=== PATIENT | male | born 1935 | race Caucasian/White ===

== ENCOUNTER 2020-02-28 18:06 | Inpatient (IN) | payer MEDICARE ==
[2020-02-28 18:51] LABS: Hemoglobin 14.2 g/dL (14.0-18.0); Mean Corpuscular HGB CONC 33.7 g/dL (32.0-36.0); Mean Corpuscular Hemoglobin 32.7 pg (27.0-31.0); Mean Corpuscular Volume 97.1 fL (78.0-98.0); Platelet Count 204 thou/uL (130-400); Red Blood Cell (RBC) Count 4.34 mill/uL (4.70-6.10); White Blood Cell (WBC) Count 39.9 thou/uL (4.8-10.8)
[2020-02-28 18:59] LABS: ALT (SGPT) 25 U/L (8-55); AST (SGOT) 33 U/L (5-34); Albumin 4.3 g/dL (3.4-4.8); Alkaline Phosphatase 77 U/L (40-110); Anion Gap 19 mmol/L (10-20); BUN (Urea Nitrogen) 26 mg/dL (8.4-25.7); Bilirubin, Total 0.6 mg/dL (0.2-1.2); Calc. Creatinine Clearance 0 mL/min (70-130); Calcium 9.9 mg/dL (7.8-10.44); Carbon Dioxide 20 mmol/L (23-31); Chloride 104 mmol/L (98-107); Estimated GFR-MDRD 37; Globulin 2.9 g/dL (2.4-3.5); Glucose 131 mg/dL (83-110); Lipase 37 U/L (8-78); Magnesium 1.9 mg/dL (1.6-2.6); Potassium 6.1 mmol/L (3.5-5.1); Protein, Total 7.2 g/dL (5.8-8.1); Sodium 137 mmol/L (136-145)
[2020-02-28 19:03] LABS: Band 2 % (5-11); Burr Cells SLIGHT = 2-5 cells (100X) (0-1/hpf); Lymphocytes 65 % (21-51); MDiff Complete? YES; Monocytes 2 % (0-10); Neutrophil 7 % (42-75); Ovalocytes SLIGHT = 2-5 cells (100X) (0-1/hpf); Platelet Morphology Comment Appears Adequate; Polychromasia SLIGHT = 2-3 cells (100X) (0-2/hpf); Reactive Lymphocytes 24 % (0-10)
[2020-02-28] MEDS ORDERED: Furosemide 40 MG/4 ML VIAL ONE (19:30)
--- NOTE | 2020-02-28 19:32 | RAD ---
EXAM: CHEST ONE VIEW HISTORY: Weakness. Near syncopal episode. COMPARISON: 07/23/2012 obtained from the [facility] FINDINGS: The cardiac silhouette and pulmonary vasculature is within normal limits. The lungs are clear. Degene rative changes are present in the spine. There is resorption of the distal right clavicle, but this is a stable finding. Vascular calcifications are again seen in the thoracic aorta. IMPRESSION: No acute cardiopulmonary process.
[2020-02-28 20:30] LABS: Bilirubin Negative (Negative); Blood, Urine Negative (Negative); Clarity Clear (Clear); Glucose, Urine (Dipstick) Normal (Negative); Ketone, Urine Negative (Negative); Leukocyte 250 Leu/uL (Negative); Nitrite Negative (Negative); Protein, Urine (Dipstick) Negative (Neg-Trace); Specific Gravity, Urine 1.012 (1.002-1.036); Squamous Epithelial None Seen HPF (0-3); Urobilinogen Normal mg/dL (Less than 2); WBC/HPF 21-50 HPF (0-3)
[2020-02-28 20:34] LABS: Bacteria/HPF 2+ HPF (None Seen)
[2020-02-28] MEDS ORDERED: cefTRIAXone\\ROCEPHIN 2 GM VIAL ONE (20:45)
[2020-02-28] MEDS ORDERED: Vancomycin 1 GM/200 ML BAG ONE (20:45)
[2020-02-28 21:31] LABS: Anion Gap 16 mmol/L (10-20); BUN (Urea Nitrogen) 27 mg/dL (8.4-25.7); Calc. Creatinine Clearance 0 mL/min (70-130); Carbon Dioxide 20 mmol/L (23-31); Chloride 107 mmol/L (98-107); Estimated GFR-MDRD 47; Glucose 137 mg/dL (83-110); Potassium 5.4 mmol/L (3.5-5.1); Sodium 138 mmol/L (136-145)
[2020-02-28 23:42] LABS: Anion Gap 15 mmol/L (10-20); BUN (Urea Nitrogen) 29 mg/dL (8.4-25.7); Calc. Creatinine Clearance 45 mL/min (70-130); Calcium 8.7 mg/dL (7.8-10.44); Carbon Dioxide 21 mmol/L (23-31); Chloride 107 mmol/L (98-107); Estimated GFR-MDRD 47; Glucose 191 mg/dL (83-110); Potassium 4.7 mmol/L (3.5-5.1); Sodium 138 mmol/L (136-145)
[2020-02-29] MEDS ORDERED: Dextrose 5% in Water 1,000 ML IV PRN (00:30)
[2020-02-29] MEDS ORDERED: HumaLOG 300 UNITS/3 ML VIAL SC PRN (00:30)
[2020-02-29] MEDS ORDERED: Dextrose 50% Abboject 50 ML SYRINGE SLOW IVP PRN (00:30)
[2020-02-29] MEDS: Sodium Chloride 0.9% 1,000 ML IV SCH ×2 (01:22→12:38)
--- NOTE | 2020-02-29 01:50 | HP ---
REASON FOR ADMISSION: Weakness. HISTORY OF PRESENT ILLNESS: This is an 84-year-old male patient, who presented to the ER for weakness. He was found to be hypotensive. 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 He did not feel right. He did not drink much fluids. He did not eat his lunch. He was stung by bees and then at some point, he felt that he was having visual changes. He called his neighbor, who is a nurse. His blood pressure was found to be very low. He was transported to the emergency room, where his blood pressure was 61/41, did receive IV fluids, responded well, and currently it is 121/63. The patient appears to be very comfortable, in no acute distress. He denies dysuria. Does report weak stream. No cough. No fevers. No chills. PAST MEDICAL HISTORY: 1. Dementia. 2. High blood pressure. 3. BPH. 4. Allergic rhinitis. PAST SURGICAL HISTORY: Sciatic nerve surgery. ALLERGIES: SEASONAL. SOCIAL HISTORY: He does drink alcohol socially. Does not smoke. Does not abuse any substance. FAMILY HISTORY: Reviewed, found to be negative for heart disease. REVIEW OF SYSTEMS: All systems reviewed except the above mentioned, found to be negative. PHYSICAL EXAMINATION: GENERAL: Awake, alert, and oriented. Does not appear in distress. VITAL SIGNS: His blood pressure is 121/63. His heart rate is 95, and saturating 100% on room air. HEENT: Head is nontraumatic and normocephalic. Pupils are equally reactive. Extraocular movements are intact. Nonicteric sclerae. Well injected conjunctivae. Oral mucosa dry. NECK: Supple. No adenopathy. No murmur. Thyroid is palpable. Trachea is midline. No supraclavicular adenopathy. HEART: S1 and S2. Regular. No murmur. No gallops. No friction rubs. No displacement of PMI. LUNGS: Clear to auscultation bilaterally. No wheezes. No rhonchi. No crackles. ABDOMEN: Bowel sounds are positive. Nontender abdomen. No hepatomegaly. EXTREMITIES: 1+ pitting edema bilateral ankles. NEUROLOGIC: Cranial nerves 2 through 12 within normal limits. Normal motor function. Normal sensory function. Normal reflexes. LABORATORY DATA: Blood work shows a WBC of 39.9, hemoglobin 14.2, platelets of 204, neutrophil count 7%, lymphocyte count 65%, and reactive lymphocytes are 24%. Sodium 137, potassium 6.1, bicarb of 20, BUN 26, and creatinine 1.75. Previous creatinine done in January 2020, 0.98. BNP 107.4. Urinalysis shows leukocyte esterase and wbc's. Chest x-ray shows no acute process. EKG did not show any evidence for changes secondary to hyperkalemia. Shows first degree AV block. ASSESSMENT AND PLAN: This is an 84-year-old male patient, who is being admitted, for what appears to be severe dehydration. He does take spironolactone, which can explain his dehydration and hyperkalemia evidenced by worsening of his creatinine as well. He is on lisinopril. Also, he does have a urinalysis that could be reflecting UTI. Infectious disease. The patient will be started on IV Rocephin, awaiting urine culture results. Renal system, electrolytes. The patient is dehydrated and hyperkalemic secondary to decreased fluid intake, worsen by being on angiotensin-converting enzyme inhibitor and spironolactone, we will hold these medication. We will have him hydrated with IV fluids. Recheck his potassium later on tonight and his electrolytes in the morning. Cardiac. The patient has history of high blood pressure, but he is normotensive now. We will hold his blood pressure medications for now. Reassess in the morning. For deep venous thrombosis prophylaxis, he will be on heparin subcutaneously. The patient is a full code. Job ID: [id number]
--- NOTE | 2020-02-29 02:31 | PDOC.EVN ---
Event Note - Event Note Event Note: Nurse called, patient appears to have rhythm change on monitor, questionable 2nd degree, type 1 heart block, asymptomatic, SBP 90s. Will get EKG, patient electrolytes appear stable, TSH WNL.
[2020-02-29 04:51] LABS: Anion Gap 15 mmol/L (10-20); BUN (Urea Nitrogen) 32 mg/dL (8.4-25.7); Calc. Creatinine Clearance 48 mL/min (70-130); Calcium 8.4 mg/dL (7.8-10.44); Carbon Dioxide 21 mmol/L (23-31); Chloride 106 mmol/L (98-107); Estimated GFR-MDRD 51; Glucose 153 mg/dL (83-110); Potassium 4.8 mmol/L (3.5-5.1); Sodium 137 mmol/L (136-145)
[2020-02-29 05:19] LABS: Band 2 % (5-11); Hemoglobin 12.6 g/dL (14.0-18.0); Lymphocytes 84 % (21-51); MDiff Complete? YES; Mean Corpuscular HGB CONC 33.2 g/dL (32.0-36.0); Mean Corpuscular Volume 96.6 fL (78.0-98.0); Mean Platelet Volume 9.7 fL (7.4-10.4); Neutrophil 10 % (42-75); Platelet Count 173 thou/uL (130-400); RBC Distribution Width 12.2 % (11.5-14.5); Reactive Lymphocytes 4 % (0-10); Red Blood Cell (RBC) Count 3.95 mill/uL (4.70-6.10); White Blood Cell (WBC) Count 28.7 thou/uL (4.8-10.8)
[2020-02-29] MEDS: Dutasteride 0.5 MG CAP PO SCH (08:34)
[2020-02-29] MEDS: Cyanocobalamin (Vitamin B-12) 1,000 MCG TAB PO SCH (08:34)
[2020-02-29] MEDS: Heparin 5,000 UNITS/ML VIAL SC SCH ×3 (08:34→20:48)
[2020-02-29] MEDS: Vit A,C & E/Lutein/Minerals Tablet PO SCH (08:34)
[2020-02-29] MEDS ORDERED: Prevnar 13-Val Conj/PF 0.5 ML SYRINGE IM ONE (09:00)
--- NOTE | 2020-02-29 11:59 | PDOC.HOSPP ---
- Subjective Encounter Date: 02/29/20 Encounter Time: 10:15 Subjective: is agitated and wants to take a shower as he is itching is sitting on bed no sob or pain - Objective Vital Signs & Weight: Vital Signs (12 hours) Temp Pulse Resp BP BP Pulse Ox 02/29/20 08:28 97.5 F L 72 18 90/43 L 97 02/29/20 05:00 97.8 F 81 18 157/87 H 94 L 02/29/20 01:26 83 20 99/54 L 95 02/29/20 00:00 95 Weight Weight 183 lb 3.2 oz Result Diagrams: 02/29/20 03:16 02/29/20 03:16 Additional Labs: Accuchecks 02/29/20 02/29/20 11:00 06:13 POC Glucose 148 H 162 H Hospitalist ROS - Medication Medications: Active Medications Generic Name Dose Route Start Last Admin Trade Name Freq PRN Reason Stop Dose Admin Cyanocobalamin 1,000 mcg 02/29/20 09:00 02/29/20 08:34 Vitamin B-12 PO 1,000 mcg DAILY GALINA Administration Dutasteride 0.5 mg 02/29/20 09:00 02/29/20 08:34 Avodart PO 0.5 mg DAILY GALINA Administration Heparin Sodium (Porcine) 5,000 units 02/29/20 09:00 02/29/20 08:34 Heparin SC 5,000 units TID GALINA Administration Sodium Chloride 1,000 mls @ 100 mls/hr 02/28/20 21:45 02/29/20 01:22 Normal Saline 0.9% IV 1,000 mls .Q10H GALINA Administration Insulin Human Lispro 0 units 02/29/20 00:30 02/29/20 06:36 Humalog SC 2 unit .MILD SLIDING SCALE PRN Administration Mild Correctional Scale Multivitamins/Minerals 1 tab 02/29/20 09:00 02/29/20 08:34 Ocuvite With Lutein PO 1 tab DAILY GALINA Administration - Exam General Appearance: awake alert, ill appearing Eye: PERRL, anicteric sclera ENT: no oropharyngeal lesions, dry oral mucosa Neck: supple, no JVD Heart: RRR, no murmur Respiratory: no wheezes, no rales Gastrointestinal: soft, non-tender, non-distended, normal bowel sounds Extremities: no cyanosis, no edema Neurological: cranial nerve grossly intact, no focal deficits Hosp A/P (1) Severe dehydration Code(s): E86.0 - DEHYDRATION Status: Acute (2) Sepsis Code(s): A41.9 - SEPSIS, UNSPECIFIED ORGANISM Status: Suspected Qualifiers: Sepsis type: sepsis due to unspecified organism Sepsis acute organ dysfunction status: without acute organ dysfunction Qualified Code(s): A41.9 - Sepsis, unspecified organism (3) UTI (urinary tract infection) Status: Acute Qualifiers: Urinary tract infection type: acute cystitis Hematuria presence: without hematuria Qualified Code(s): N30.00 - Acute cystitis without hematuria (4) Dementia Code(s): F03.90 - UNSPECIFIED DEMENTIA WITHOUT BEHAVIORAL DISTURBANCE Status: Chronic Qualifiers: Dementia type: unspecified type Dementia behavioral disturbance: with behavioral disturbance Qualified Code(s): F03.91 - Unspecified dementia with behavioral disturbance (5) DM type 2 (diabetes mellitus, type 2) Status: Chronic Qualifiers: Diabetes mellitus fdc insulin use: without long term care administrator use (6) Labile hypertension Code(s): I10 - ESSENTIAL (PRIMARY) HYPERTENSION Status: Acute - Plan still has elevated wbc iv fluids echo for lv function is on ceftriaxone, await culture results continue selected home meds as above may need 1:1 sitter if he continues to get agitated, d/w RN hemostable encourage po intake
[2020-02-29 14:02] VITALS: BMI 24.8
[2020-02-29] MEDS ORDERED: Lorazepam 2 MG/ML VIAL SLOW IVP PRN (14:48)
[2020-02-29] MEDS ORDERED: traZODone HCl 50 MG TAB PO PRN (14:49)
--- NOTE | 2020-02-29 17:50 | EKG ---
Test Reason : STAT Blood Pressure : / mmHG Vent. Rate : 084 BPM Atrial Rate : 084 BPM P-R Int : 330 ms QRS Dur : 126 ms QT Int : 484 ms P-R-T Axes : -06 000 048 degrees QTc Int : 571 ms Sinus rhythm with 1st degree A-V block Non-specific intra-ventricular conduction block Nonspecific T wave abnormality Abnormal ECG When compared with ECG of 13-SEP-1998 07:13, IA interval has increased Non-specific intra-ventricular conduction block has replaced Incomplete right bundle branch block Confirmed by YUNIEL TAYLOR, SVasquez ([id number]) on 02/29/2020 5:50:27 PM Referred By: Confirmed By:DR. Manny BRICE MD
[2020-02-29] MEDS ORDERED: Aspirin Chewable 81 MG TAB PO SCH (21:00)
[2020-02-29] MEDS ORDERED: Melatonin 3 MG TAB PO SCH (21:00)
[2020-02-29] MEDS ORDERED: Ezetimibe 10 MG TAB PO SCH (21:00)
[2020-02-29] MEDS ORDERED: cefTRIAXone\\ROCEPHIN 1 GM in Sodium Chloride 0.9% 100 ML IVPB SCH (22:00)
[2020-03-01] MEDS: Sodium Chloride 0.9% 1,000 ML IV SCH (07:37)
[2020-03-01] MEDS: Vit A,C & E/Lutein/Minerals Tablet PO SCH (07:44)
[2020-03-01] MEDS: Cyanocobalamin (Vitamin B-12) 1,000 MCG TAB PO SCH (07:45)
[2020-03-01] MEDS: Dutasteride 0.5 MG CAP PO SCH (07:45)
[2020-03-01] MEDS: Heparin 5,000 UNITS/ML VIAL SC SCH (07:48)
[2020-03-01 07:57] LABS: Hemoglobin 13.1 g/dL (14.0-18.0); Mean Corpuscular HGB CONC 31.5 g/dL (32.0-36.0); Mean Corpuscular Hemoglobin 31.1 pg (27.0-31.0); Mean Corpuscular Volume 98.8 fL (78.0-98.0); Mean Platelet Volume 8.7 fL (7.4-10.4); Platelet Count 159 thou/uL (130-400); RBC Distribution Width 12.2 % (11.5-14.5); Red Blood Cell (RBC) Count 4.22 mill/uL (4.70-6.10); White Blood Cell (WBC) Count 31.1 thou/uL (4.8-10.8)
[2020-03-01 08:20] LABS: ALT (SGPT) 22 U/L (8-55); AST (SGOT) 26 U/L (5-34); Albumin 3.6 g/dL (3.4-4.8); Alkaline Phosphatase 64 U/L (40-110); Anion Gap 11 mmol/L (10-20); BUN (Urea Nitrogen) 20 mg/dL (8.4-25.7); Bilirubin, Total 0.4 mg/dL (0.2-1.2); Calc. Creatinine Clearance 80 mL/min (70-130); Calcium 7.9 mg/dL (7.8-10.44); Carbon Dioxide 22 mmol/L (23-31); Chloride 109 mmol/L (98-107); Estimated GFR-MDRD 87; Globulin 2.2 g/dL (2.4-3.5); Glucose 88 mg/dL (83-110); Potassium 4.8 mmol/L (3.5-5.1); Protein, Total 5.8 g/dL (5.8-8.1); Sodium 137 mmol/L (136-145)
[2020-03-01 09:25] LABS: Burr Cells SLIGHT = 2-5 cells (100X) (0-1/hpf); Eosinophils 17 % (0-10); Lymphocytes 75 % (21-51); MDiff Complete? YES; Neutrophil 8 % (42-75); Platelet Morphology Comment Appears Adequate; Polychromasia SLIGHT = 2-3 cells (100X) (0-2/hpf)
[2020-03-01 10:40] VITALS: BP 156/70; TEMP 97.7
--- NOTE | 2020-03-01 14:12 | DIS ---
DATE OF ADMISSION: 02/28/2020 DATE OF DISCHARGE: 03/01/2020 DISCHARGE DISPOSITION: The patient signed out against medical advice. PRIMARY DISCHARGE DIAGNOSES: 1. 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 2. Urinary tract infection. 3. Dementia. 4. Diabetes mellitus, type 2. 5. Labile hypertension. LABORATORY DATA: Chest x-ray done, no acute cardiopulmonary process. Blood cultures x2, no growth. Urine culture, no growth. UA was positive for UTI. Discharge BUN and creatinine are 32 and 1.3. BNP 107. TSH 2.1. White count of 39, H and H 14 and 42, and platelet count 204 with 7% neutrophils, 65% lymphocytes. Peripheral smear read by pathologist shows absolute lymphocytosis. Picture is suspicious for lymphoproliferative disorder. DISCHARGE MEDICATIONS: 1. Norvasc 5 mg daily. 2. Aspirin 81 mg p.o. at bedtime. 3. Atenolol 50 mg p.o. q.p.m. 4. Vitamin B12 1000 mcg p.o. daily. 5. Avodart 0.5 mg p.o. daily. 6. Zetia 10 mg p.o. at bedtime. 7. Glipizide extended release 5 mg daily. 8. Lisinopril 10 mg daily. 9. Glucophage 500 mg twice daily. 10. Ciprofloxacin 500 mg twice daily for 5 days. ALLERGIES: NO KNOWN DRUG ALLERGIES. DISCHARGE PLAN: The patient to follow up with his primary care physician, Dr. Jasbir Amaya in 1 week. He also needs outpatient Heme-Onc consultation. BRIEF COURSE DURING HOSPITALIZATION: The patient initially was brought to emergency room after he was stung by bees and was out in the open, working in his farm. His blood pressure was very low when EMS arrived. He was not hydrating himself despite being out in the sun prior to arrival. In view of this, elevated white count with suspected UTI, the patient was admitted to telemetry. He was gently hydrated with IV fluids. The patient's white count has remained high around 31,000. He also has 75% lymphocytes with 8% neutrophils on the differential. Peripheral smear was read by the pathologist and it is suspicious for lymphoproliferative disorder. His flow cytometry is currently pending. The patient this morning got agitated like yesterday, but did not calm down and wanted to sign out against advice. He was fully oriented prior to signing against advice. I have given complete updates to the patient's daughter, Ms. Madison Lewis. I have asked her to call Dr. Fong's office for a new appointment to discuss the flow cytometry results which will likely take another 3 days to come and to see if he has any lymphoproliferative disorder. Prior to discharge, he is tolerating oral solid diet. He has elevated eosinophils on the peripheral smear likely due to bee sting that he had prior to arrival. He is otherwise hemodynamically stable. I have seen and examined him on the day of discharge. Job ID: [id number] MTDD
--- NOTE | 2020-03-03 09:19 | PQF ---
CLINICAL DOCUMENTATION CLARIFICATION FORM: Mary Borges Date: Can you please further clarify if Sepsis id ruled in or ruled out? Sepsis [ x ] Ruled in diagnosis [ x ] Continue to treat [ ] Resolved [ ] Ruled out diagnosis [ ] Improving [ ] Cannot rule out diagnosis [ ] Other diagnosis [ ] Unable to determine To be completed by CDI/Coding staff for physician review: w Present w Clinical Indicators - Signs / Symptoms / Labs w Results and Location in Medical Record w [ x ] w Sepsis Status: Suspected w Hospitalist PN 02/28 pg.3 w [ x ] w Patient did meet sepsis criteria w ED Provider pg.3 w [ x ] w VS 61/41, Pulse 91, Respi 20, Temp 97.6 w ED Provider pg.2 w [ x ] w Labs WBC: 02/27=39.9 02/28=28.7 03/01=31.1 w Collected 02/27 w [ x ] w He was found to be hypotensive w HP 02/27 w [ x ] w Labs Lactate: 02/27=1.8 w Collected 02/27 w [ x ] w Blood culture: no growth at 48 hrs w Collected 02/27 w [ x ] w Urine culture:Non hemolytic streptococcus Pseudomonas w Collected w Present w Risk Factors w Results and Location in Medical Record w [ x ] w UTI w H and P pg.2 w [ x ] w Dementia w H and P pg.1 w [ x ] w 84 years old w H and P pg.1 w [ x ] w Lymphoproliferative disorder w DS pg.1 w [ x ] w DM type 2 w ED Notes 02/27 w [ x ] w Former Smoker w ED Notes 02/27 w Present w Treatments w Results and Location in Medical Record w [ x ] w IV Fluids w MAR 02/28/20 w [ x ] w Chest X ray w Collected 02/28/2020 w [ x ] w Urine Culture and blood culture w Microbiology w [ x ] w Vancomycin 1gm IV, Ceftriazone 1gm IV w OCT 30 CDS/Drink Waiter Signature: Aftab Niño Phone #: ext [phone] Date/Time: 03/03/2020 This is a permanent part of the Medical Record [facility]
== END 2020-03-01 11:46 | disposition left against medical advice (07) | DRG 840 ==
LOC: ERS 18:06 → 2NO 21:10
PROVIDERS: ADMIT Internal Medicine; ATTEND Internal Medicine
DX: D47.9 Neoplasm of uncertain behavior of lymphoid, hematopoietic and related tissue, unspecified (principal); A41.9 Sepsis, unspecified organism; N30.00 Acute cystitis without hematuria; F03.91 Unspecified dementia, unspecified severity, with behavioral disturbance; E86.0 Dehydration; N40.0 Benign prostatic hyperplasia without lower urinary tract symptoms; J30.2 Other seasonal allergic rhinitis; E87.5 Hyperkalemia; I10 Essential (primary) hypertension; E78.00 Pure hypercholesterolemia, unspecified; Z53.29 Procedure and treatment not carried out because of patient's decision for other reasons; Z87.891 Personal history of nicotine dependence
CPT/HCPCS: 36415; 36416; 71045; 80048; 80053; 81003; 81015; 83605; 83690; 83735; 83880; 84443; 84484; 85025; 85060; 87040; 87077; 87086; 87186; 88184; 88185; 93005; 93010; 96361; 96365; 96367; 96375; J0696; J1644; J1940; J3370; J3490

== ENCOUNTER 2021-07-14 10:26 | Outpatient (CLI) | payer MEDICARE | END 2021-07-14 10:27 | disposition home or self-care (01) | LOC: BICRAD 10:26 | PROVIDERS: ATTEND Internal Medicine Hematology & Oncology | DX: R07.81 Pleurodynia (principal); C91.10 Chronic lymphocytic leukemia of B-cell type not having achieved remission | CPT/HCPCS: 71046 ==

== ENCOUNTER 2021-07-25 09:30 | Outpatient (CLI) | payer MEDICARE | END 2021-07-25 09:31 | disposition home or self-care (01) | LOC: BICULT 09:30 | PROVIDERS: ATTEND Internal Medicine Hematology & Oncology | DX: R16.1 Splenomegaly, not elsewhere classified (principal) | CPT/HCPCS: 76705 ==

== ENCOUNTER 2021-12-27 13:31 | Outpatient (CLI) | payer MEDICARE | END 2021-12-27 13:32 | disposition home or self-care (01) | LOC: SCSMRI 13:31 | PROVIDERS: ATTEND Family Medicine | DX: M51.16 Intervertebral disc disorders with radiculopathy, lumbar region (principal); M48.061 Spinal stenosis, lumbar region without neurogenic claudication; M96.1 Postlaminectomy syndrome, not elsewhere classified; M48.07 Spinal stenosis, lumbosacral region | CPT/HCPCS: 72148; 82565 ==

== ENCOUNTER 2022-02-19 13:18 | Outpatient (CLI) | payer MEDICARE | END 2022-02-19 13:19 | disposition home or self-care (01) | LOC: BICULT 13:18 | PROVIDERS: ATTEND Internal Medicine | DX: M79.601 Pain in right arm (principal); R60.9 Edema, unspecified ==

== ENCOUNTER 2022-05-21 07:58 | Outpatient (CLI) | payer MEDICARE | END 2022-05-21 07:59 | disposition home or self-care (01) | LOC: BICRAD 07:58 | PROVIDERS: ATTEND Family Medicine | DX: I89.0 Lymphedema, not elsewhere classified (principal) | CPT/HCPCS: 71046 ==

== ENCOUNTER 2023-04-15 11:41 | Outpatient (CLI) | payer MEDICARE | END 2023-04-15 11:42 | disposition home or self-care (01) | LOC: RAD 11:41 | PROVIDERS: ATTEND Podiatrist | DX: S99.922A Unspecified injury of left foot, initial encounter (principal); R23.3 Spontaneous ecchymoses; M20.42 Other hammer toe(s) (acquired), left foot; M89.9 Disorder of bone, unspecified ==

== ENCOUNTER 2023-11-14 10:06 | Outpatient (CLI) | payer MEDICARE | END 2023-11-14 10:07 | disposition home or self-care (01) | LOC: BICRAD 10:06 | PROVIDERS: ATTEND Family Medicine | DX: R07.81 Pleurodynia (principal) ==

== ENCOUNTER 2024-05-20 12:48 | Outpatient (CLI) | payer MEDICARE | END 2024-05-20 12:49 | disposition home or self-care (01) | LOC: RAD 12:48 | PROVIDERS: ATTEND Internal Medicine | DX: S91.301A Unspecified open wound, right foot, initial encounter (principal) ==